=== PATIENT | male | born 1995 | race Caucasian/White ===

== ENCOUNTER → 2017-07-19 | Outpatient (CLI) | payer OTHER ==
--- NOTE | 2017-07-19 12:28 | XR ---
EXAMINATION TYPE: XR lumbar spine 2 or 3V DATE OF EXAM: 07/19/2017 CLINICAL HISTORY: pain TECHNIQUE: Three views of the lumbar spine are submitted. COMPARISON: None. FINDINGS: There are 5 lumbar type vertebral bodies identified. The lumbar spine shows satisfactory alignment w ithout evidence of acute fracture or dislocation. Vertebral body heights are within normal limits. Disc spaces are within normal limits. The overlying soft tissue appears unremarkable. IMPRESSION: No acute fracture or dislocation is seen in the lumbar spine. ICD 10 NO FRACTURE, INITIAL EVALUATION
== END | disposition home or self-care (01) ==
LOC: RADXRMAIN 10:44
PROVIDERS: ATTEND Family Medicine
DX: M54.32 Sciatica, left side (principal)
CPT/HCPCS: 72100

== ENCOUNTER 2017-07-23 21:24 | Emergency (ER) | payer MEDICAID, OTHER ==
[2017-07-23 21:31] VITALS: RESP 20
[2017-07-23] MEDS ORDERED: GLUCAGON 1 MG/ML VIAL IVP STA (21:47)
--- NOTE | 2017-07-23 21:57 | ED ---
General Adult HPI - General Chief complaint: ENT Stated complaint: food in throat Time Seen by Provider: 07/23/17 21:45 Source: patient, RN notes reviewed Mode of arrival: ambulatory Limitations: no limitations - History of Present Illness Initial comments: This is a 22-year-old male who states he some pork chop about 6 PM piece of again stuck in his esophagus. He states she's had this before about 2 years ago. He denies any chest pain shortness of breath fevers chills or sweats. - Related Data Home Medications Medication Instructions Recorded Confirmed Cataplex B 1 tab PO DAILY 07/23/17 07/23/17 Fish Oil/Dha/Epa [Fish Oil 1,200 1 cap PO DAILY 07/23/17 07/23/17 mg Fish Oil] Inflavonoid 1 tab PO DAILY 07/23/17 07/23/17 Naproxen [Naprosyn] 500 mg PO Q12HR PRN 07/23/17 07/23/17 methylPREDNISolone [Medrol Dose See Taper PO DIRECTED 07/23/17 07/23/17 Pack] Allergies Allergy/AdvReac Type Severity Reaction Status Date / Time No Known Allergies Allergy Verified 07/23/17 23:03 Review of Systems ROS Statement: Those systems with pertinent positive or pertinent negative responses have been documented in the HPI. ROS Other: All systems not noted in ROS Statement are negative. Past Medical History Past Medical History: No Reported History History of Any Multi-Drug Resistant Organisms: None Reported Past Surgical History: No Surgical Hx Reported Past Psychological History: No Psychological Hx Reported Smoking Status: Never smoker Past Alcohol Use History: None Reported Past Drug Use History: None Reported General Exam - General Exam Comments Initial Comments: This is a well-developed well-nourished awake alert oriented 3 male Limitations: no limitations General appearance: alert, in no apparent distress Head exam: Present: atraumatic, normocephalic, normal inspection Eye exam: Present: normal appearance, PERRL, EOMI. Absent: scleral icterus, conjunctival injection, periorbital swelling ENT exam: Present: normal exam, mucous membranes moist Neck exam: Present: normal inspection. Absent: tenderness, meningismus, lymphadenopathy Respiratory exam: Present: normal lung sounds bilaterally. Absent: respiratory distress, wheezes, rales, rhonchi, stridor Cardiovascular Exam: Present: regular rate, normal rhythm, normal heart sounds. Absent: systolic murmur, diastolic murmur, rubs, gallop, clicks GI/Abdominal exam: Present: soft, normal bowel sounds. Absent: distended, tenderness, guarding, rebound, rigid Extremities exam: Present: normal inspection, full ROM, normal capillary refill. Absent: tenderness, pedal edema, joint swelling, calf tenderness Back exam: Present: normal inspection Neurological exam: Present: alert, oriented X3, CN II-XII intact Psychiatric exam: Present: normal affect, normal mood Skin exam: Present: warm, dry, intact, normal color. Absent: rash Course Vital Signs 07/23/17 21:27 Temperature 100.0 F H Pulse Rate 82 Respiratory 20 Rate Blood Pressure 133/76 O2 Sat by Pulse 100 Oximetry Medical Decision Making - Medical Decision Making Patient was evaluated by Dr. Tidwell and endoscopy was performed. The food bolus was removed. Patient tolerated this well and feels much improved at this time. Patient will be discharged with follow-up in the office he was started on Prilosec. He is also to keep his follow-up with Dr. Coker as planned Disposition Clinical Impression: Esophageal foreign body Disposition: HOME SELF-CARE Condition: Good Instructions: Esophageal Foreign Body (ED) Referrals: Enrique Coker MD [Primary Care Provider] - 1-2 days
[2017-07-23] MEDS ORDERED: PROPOFOL 10 MG/ML 20 ML VIAL IV ONE (22:50)
[2017-07-23] MEDS ORDERED: SODIUM CHLORIDE 0.9% 1,000 ML IV ONE (22:56)
[2017-07-23 23:39] VITALS: BP 106/62; PULSE 65; TEMP 99.5
--- NOTE | 2017-07-24 06:21 | PCN ---
PROCEDURE NOTE DATE OF SERVICE: 07/23/2017. PROCEDURE: Esophagogastroduodenoscopy and removal of esophageal foreign body and biopsies from the antrum and esophagus. PREPARATION AND SEDATION: Preparation and sedation was provided by anesthesia. PREOPERATIVE DIAGNOSIS: Obstructive dysphagia. POSTOPERATIVE DIAGNOSIS: 1. Impacted piece of meat removed with a snare. 2. Corrugated esophagus consistent with eosinophilic esophagitis, biopsies obtained. 3. Gastritis and duodenitis. Biopsies obtained from the antrum to rule out H. Pylori infection. BRIEF CLINICAL HISTORY: The patient is a 22-year-old male who presented to the emergency room with the complaint of inability to swallow that happened after he was eating pork. The patient was not able to swallow his saliva or any food or liquid. He had similar episodes in the past. The last in 2015 and he required an upper endoscopy on a prior episode before that. The patient has difficulties when he eats meats and pork, but otherwise describes no specific swallowing issues and is not on any acid suppressive medications. He apparently had endoscopy in the past and was evaluated and told he had PEANUT allergy, which he has not been avoiding. This evaluation is to assess for impacted piece of meat. PROCEDURE: With the patient on his left lateral decubitus position and after informed consent and adequate sedation, I passed the Olympus GIF-160 video upper endoscope through the cricopharyngeus down the esophagus. The esophagus had a lot of secretions and debris which I suctioned and the impacted piece of meat was noted in the distal esophagus. I was able to capture that with a snare and removed it intact by withdrawing the endoscope with the snare. I then advanced the endoscope back into the stomach down the esophagus and passed it through the pylorus into the duodenum. The esophagus was corrugated consistent with eosinophilic esophagitis. GE junction was around 40 cm from the incisors and there was a small sliding hiatal hernia, but it was difficult to assess for esophagitis because of the exudation and friability in that area secondary to the impacted piece of meat. There was mottling and erythema in the stomach and I noted some erosions in the duodenal bulb on a background of erythema and edema. I will obtain biopsies from the antrum and the esophagus. Then the endoscope was withdrawn. The patient tolerated the procedure well. PLAN: Will await biopsy results. In the meantime, I advised that he stays on a liquid diet tonight and I suggested that he can use Pepcid or Prilosec over the counter until I see him in followup in the office and make additional recommendations regarding long-term management of his issues. I will keep you updated on his progress. MMHOLGERL / IJN: [id number] /
== END 2017-07-23 23:49 | disposition home or self-care (01) ==
LOC: EC 21:24
DX: T18.128A Food in esophagus causing other injury, initial encounter (principal); Z79.899 Other long term (current) drug therapy; Z79.52 Long term (current) use of systemic steroids
CPT/HCPCS: 99282; 43215; 96374; 96361; 43239; 43247; J1610; J2704; 88305

== ENCOUNTER → 2017-08-14 | Outpatient (CLI) | payer MEDICAID ==
--- NOTE | 2017-08-14 12:03 | MR ---
EXAMINATION TYPE: MR lumbar spine wo/w con DATE OF EXAM: 08/14/2017 11:08 AM COMPARISON: NONE HISTORY: sciatica, back and leg pain CONTRAST: The patient was injected with 8.5 mL intravenous Gadavist gadolinium contrast. Multiplanar, MultiSpin echo imaging of the lumbar spine was performed. L1-L2: Normal disc appearance without desiccation. No herniation, protrusion or disc bulging. No ca nal stenosis is present. Foramina are patent bilaterally. L2-L3: Normal disc appearance without desiccation. No herniation, protrusion or disc bulging. No ca nal stenosis is present. Foramina are patent bilaterally. L3-L4: Normal disc appearance without desiccation. No herniation, protrusion or disc bulging. No ca nal stenosis is present. Foramina are patent bilaterally. L4-L5: Mild disc desiccation. Subligamentous left-sided paracentral disc herniation results in left l ateral recess stenosis and foraminal encroachment. No evidence for central stenosis at this time. L5-S1: Normal disc appearance without desiccation. No herniation, protrusion or disc bulging. No ca nal stenosis is present. Foramina are patent bilaterally. Lumbar segments are intact. No paraspinal masses are identified. Conus medullaris has a normal appe arance. No pathologic enhancement. IMPRESSION: 1. Left-sided paracentral disc herniation at L4-5 resulting in left lateral recess stenosis and sergey inal encroachment. No evidence for extrusion or sequestered fragment.
== END | disposition home or self-care (01) ==
LOC: RADMRIMAIN 10:05
PROVIDERS: ATTEND Family Medicine
DX: M48.061 Spinal stenosis, lumbar region without neurogenic claudication (principal); M51.16 Intervertebral disc disorders with radiculopathy, lumbar region
CPT/HCPCS: 72158; A9581

== ENCOUNTER → 2020-12-02 | Outpatient (CLI) | payer BC, MEDICAID ==
--- NOTE | 2020-12-02 11:57 | MR ---
EXAMINATION TYPE: MR lumbar spine wo con DATE OF EXAM: 12/02/2020 COMPARISON: NONE HISTORY: Pain into lt buttocks, stenosis TECHNIQUE: T1 and T2 axial and sagittal images of the lumbar spine are submitted. FINDINGS: There is no abnormal signal seen within the visualized spinal cord or paraspinal soft tissu es. Small Schmorl's nodes are seen at multiple levels. Aorta of normal caliber. At L1-2 there is no evidence of degenerative disc disease, disc herniation, canal stenosis, or forami nal encroachment. At L2-3 there is no evidence of degenerative disc disease, disc herniation, canal stenosis, or forami nal encroachment At L3-4 there is no evidence of degenerative disc disease, disc herniation, canal stenosis, or forami nal encroachment. Mild broad-based central disc bulging. At L4-5 there is there is disc desiccation. There is a large central and left paracentral disc broad- based herniation with severe anterolateral compression of the thecal sac. Compression of the exiting left nerve root is suspected. There is foraminal encroachment bilaterally. At L5-S1 there is no evidence of degenerative disc disease, disc herniation, canal stenosis, or sergey inal encroachment Mild broad-based central disc bulging. IMPRESSION: 1. Large central left paracentral disc herniation with severe compression of the thecal sac and suspe cted left-sided nerve root compression L4-L5 correlate clinically. 2. Broad-based mild disc bulging L3-4 and L5-S1.
== END | disposition home or self-care (01) ==
LOC: RADMRIMAIN 08:55
PROVIDERS: ATTEND Nurse Practitioner
DX: M51.17 Intervertebral disc disorders with radiculopathy, lumbosacral region (principal)
CPT/HCPCS: 72148

== ENCOUNTER 2021-03-21 12:34 | Day surgery (SDC) | payer BC, MEDICAID ==
[~2021-03-21 12:34] MED LIST: LACTATED RINGERS 1,000 ML IV SCH
[2021-03-21 12:55] VITALS: TEMP 98.5
[2021-03-21] MEDS ORDERED: MIDAZOLAM 2 MG/2 ML VIAL ONE (13:03)
[2021-03-21] MEDS ORDERED: IOPAMIDOL M200 10 ML VIAL ONE (13:03)
[2021-03-21] MEDS ORDERED: methylPREDNISolone ACETATE 40 MG/ML 1 ML VIAL ONE (13:03)
[2021-03-21] MEDS ORDERED: fentaNYL (PF) 50 MCG/ML 2 ML AMP ONE (13:03)
--- NOTE | 2021-03-21 13:19 | P.PCN ---
Date of Procedure: 03/21/21 Procedure(s) Performed: PREOPERATIVE DIAGNOSIS: 1-Lumbar radiculopathy . 2-lumbar herniated disc disease POSTOPERATIVE DIAGNOSIS: Same as preoperative diagnoses. PROCEDURE 1. Transforaminal epidural steroid injection under fluoroscopic guidance at left L4-5 level. (Fluoroscopy images stored on file in the radiology Department ) 2. Lumbar epidurogram . ANESTHESIA: Local with 1% lidocaine 3 ml , moderate sedation with intravenous Versed 2 mg and fentanyle 50 micrograms. EBL: Minimal PROCEDURE INDICATION: The patient with low back pain and radiculopathy symptoms unresponsive to conservative treatment. PROCEDURE DESCRIPTION / TECHNIQUE: The patient was seen and identified in the preoperative area. Risks, benefits, complications, and alternatives were discussed with the patient. The patient agreed to proceed with the procedure and signed the consent. IV was started, and vital signs were stable. Patient was taken to the OR and time out was completed. The patient was placed in the prone position on procedure table and a pillow was placed under the abdomen to reduce lumbar lordosis. The lumbosacral area was prepped and draped in the usual sterile fashion. Critical pause was taken. Vital signs were closely monitored during the procedure. Conscious sedation was used during the procedure to decrease patient s anxiety. Using oblique fluoroscopy, the chin of the ``Jeevan dog at left L4-5 level was identified, and the skin and deeper tissues just below was localized with 1% lidocaine. Subsequently, a 22-gauge 3.5-inch spinal needle was advanced under a tunneled view fluoroscopic guidance just underneath the chin of the ``Jeevan dog at the left L4-5 Under lateral fluoroscopy, the needle was then advanced to the posterior border of the interforaminal space. After negative aspiration of CSF and blood and with no paresthesias, 1 mL Isovue 200 contrast dye was injected excellent epidurogram and outlining of the nerve root Subsequently, 3 mL of block solution containing 80 mg Depo-Medrol and 2 mL of 0.9% normal saline PF was injected. Needle was removed intact . At the end of the procedure, skin was cleansed, and bandages were applied. COMPLICATIONS:none DISPOSITION / PLANS: The patient was placed in a supine position and transferred to the recovery area in a stable condition for observation. There was no evidence of lower extremity motor or sensory deficit after the procedure. Patient was discharged from the recovery room after meeting discharge criteria. Home discharge instructions were given to the patient by the staff. The patient was reexamined prior to discharge.
[2021-03-21] MEDS ORDERED: IV FLUID CONTINUATION 1,000 ML IV ONE (13:20)
[2021-03-21 13:27] VITALS: RESP 16
--- NOTE | 2021-03-21 13:42 | FL ---
EXAMINATION TYPE: FL guided pain mgmt statistic DATE OF EXAM: 03/21/2021 CLINICAL HISTORY: Low back pain. TECHNIQUE: Fluoroscopy. COMPARISON: None. FINDINGS: Fluoroscopic guidance was provided during pain relief procedure performed by Dr. Baez . A total of 9 seconds of fluoroscopic time was utilized during the procedure and 1 spot image is ac quired. Single image acquired shows needle localization at L4 level with contrast injection. IMPRESSION: As Above.
[2021-03-21 13:52] VITALS: BP 115/69; PULSE 69
== END 2021-03-21 14:08 | disposition home or self-care (01) ==
LOC: ORPAIN 12:34
PROVIDERS: ATTEND Specialist
DX: M51.16 Intervertebral disc disorders with radiculopathy, lumbar region (principal)
CPT/HCPCS: 64483; J2250; J1030; J3010; Q9966; 99152

== ENCOUNTER → 2021-04-17 | Outpatient (CLI) | payer BC ==
[2021-04-17 14:51] VITALS: BP 145/82; PULSE 82; RESP 18; TEMP 97.9
--- NOTE | 2021-04-17 15:03 | P.PAINPG ---
Subjective Progress Note Date: 04/17/21 Principal diagnosis: Lumbar back pain, and left leg pain Mr. Coker is a 25 -year-old pleasant male came to the [facility] pain clinic for postprocedure evaluation . Patient has ongoing pain for many years secondary to trampoline injury. Patient had a left transforaminal L4-L5 epidural steroid injection on 03/21/2021. Which helped more than 80% pain relief, still helping to some extent in relieving his pain. Most of his pain during his activities, and during the nighttime after prolonged working hours. He is actively working and doing climbing, and lifting things.. Patient describes pain is aching, throbbing, constant type of pain. Pain is radiating to left lower extremity up to the calf area. Patient rated pain levels are 6 out of 10 in severity. With the help of procedure pain levels are 0 out of 10 in severity. Activities making pain worse. Medications, resting, interventional procedure helping in relieving patient's pain. Patient pain some days better than others. Overall activities decreased secondary to pain. Because of the pain sometimes patient is feeling lack of sleep, interest, and energy. Denied any side effects with the medications. Denied any bowel or bladder problems at this time. Not using any walking aids. Patient denies any suicidal or homicidal ideations intent or plan. Patient denies any auditory or visual hallucinations. Patient denied any red flag symptoms related to pain. Objective - Vital Signs Vital signs: Vital Signs Temp 97.9 F 04/17/21 14:44 Pulse 82 04/17/21 14:44 Resp 18 04/17/21 14:44 BP 145/82 04/17/21 14:44 Pulse Ox 100 04/17/21 14:44 - Exam General: Well-developed, well-nourished, no acute distress HEENT: Normocephalic, and atraumatic Neck: Supple, no neck swelling Psychiatric: Appropriate mood, and affect MACHINE RIVETER: No focal neurological deficits Musculoskeletal: Upper extremity: Normal strength, and range of motion. Sensation grossly intact Lower extremity: Normal strength, and decreased range of motion secondary to pain Lumbar spine: Paravertebral tenderness: positive Lumbar facet load test : Negative Sacroiliac joint tenderness: Negative SLR test: Negative - Constitutional Constitutional Comment(s): 13 point review of symptoms negative except as mentioned in history of present illness Assessment and Plan Assessment: L4-L5 herniated nucleus pulposus Chronic intermittent low back pain, radiating to left lower extremity Plan: #1 Diagnoses, prognosis, and multiple treatment options including but not limited to physical therapy, interventional therapy, adjunct medication therapy, narcotic medication, and surgical options were discussed with the patient. And all questions were answered to the patient's satisfaction. #2 treatment plan agreement : Patient was thoroughly discussed regarding the treatment options, alternatives, and importance of exercises as tolerated. Patient clearly understood. #3 Patient was counseled on importance of regular exercise. Including jay jay chi, aerobic exercises as tolerated. Which helps for chronic pain, and overall well- being. #4 investigations: MAPS- reviewed , urine drug test- not done #5 diagnostic tests: None #6 consultation : None # 7 interventional procedures: Left side L4-L5 transforaminal epidural steroid injection . Procedure, complications, alternatives discussed with the patient. #8 medications None from the pain clinic # 9 TENS unit's, and percussion massage device #10 disposition: scheduled to follow up with pain clinic in [ ] weeks duration. Time with Patient: Less than 30 PQRS Measure Charge Sheet Measure #130: Documentation of Current Meds in Medical Chart: Patient's medications documented in chart Measure #226: Tobacco Use: Screen & Cessation Intervention: Pt not a tobacco user Measure #111: Pneumonia Vaccination: Pneumococcal vaccine NOT administered or previously given Measure #47: Advance Care Plan: Advance care planning discussed & documented, pt chose/unable to give Measure #412: Opioid Treatment Agreement: No documentation of signed opioid treatment agreement Measure #408: Opioid Therapy Follow-up Evaluation: Patient had NO f/u eval minimum every 3 months during opioid therapy Measure #317: Preventitive Care & Scrn High Bld Press & F/U: Normal blood pre ssure, f/u not required Measure #128: Body Mass Index (BMI) Screening & Follow-up: BMI documented within normal parameters Measure #131: Pain Assessment & Follow-up: Pain positive & plan documented Measure #431: Unhealthy Alcohol Use Preventative Care & Scrn: Patient not identified as an unhealthy alcohol user Mode of Arrival: Ambulatory - Pain Location Lower Back Non-Pharmacological Interventions: Exercise, Home Exercise, Ice, Inactivity, Physical Therapy, Position/Reposition, Stretching Pharmacological Interventions: Epidural, Medication, PRN Medication PQRS Narrative: Smoking Status Never smoker Blood Pressure 145/82 Pain Intensity [Lower Back] 0 Scale Used Numeric (1 - 10) Hx Alcohol Use (MH) No Home Medications: Ambulatory Orders Naproxen [Naprosyn] 500 mg PO Q12HR PRN 07/23/17 Controlled Substance Measures - Controlled Substance Measures Is patient prescribed a controlled substance at discharge?: No
== END ==
LOC: PNWHC3 14:28
DX: M51.26 Other intervertebral disc displacement, lumbar region (principal); G89.29 Other chronic pain
CPT/HCPCS: 99211

== ENCOUNTER 2021-05-25 11:47 | Day surgery (SDC) | payer BC ==
[2021-05-24 09:05] VITALS: BMI 27.9
[2021-05-25 12:03] VITALS: RESP 20; TEMP 98.5
[2021-05-25] MEDS ORDERED: IOPAMIDOL M200 10 ML VIAL ONE (12:47)
[2021-05-25] MEDS ORDERED: methylPREDNISolone ACETATE 40 MG/ML 1 ML VIAL ONE (12:47)
--- NOTE | 2021-05-25 13:06 | P.PCN ---
Date of Procedure: 05/25/21 Procedure(s) Performed: PREOPERATIVE DIAGNOSIS: 1-Lumbar radiculopathy . 2-lumbar herniated disc disease POSTOPERATIVE DIAGNOSIS: Same as preoperative diagnoses. PROCEDURE 1. Transforaminal epidural steroid injection under fluoroscopic guidance at left L4-5 level. (Fluoroscopy images stored on file in the radiology Department ) 2. Lumbar epidurogram . ANESTHESIA: Local with 1% lidocaine 3 ml only EBL: Minimal PROCEDURE INDICATION: The patient with low back pain and radiculopathy symptoms unresponsive to conservative treatment. PROCEDURE DESCRIPTION / TECHNIQUE: The patient was seen and identified in the preoperative area. Risks, benefits, complications, and alternatives were discussed with the patient. The patient agreed to proceed with the procedure and signed the consent. IV was started, and vital signs were stable. Patient was taken to the OR and time out was completed. The patient was placed in the prone position on procedure table and a pillow was placed under the abdomen to reduce lumbar lordosis. The lumbosacral area was prepped and draped in the usual sterile fashion. Critical pause was taken. Vital signs were closely monitored during the procedure. Using oblique fluoroscopy, the chin of the `Beckyy dog at left L4-5 level was identified, and the skin and deeper tissues just below was localized with 1% lidocaine. Subsequently, a 22-gauge 3.5-inch spinal needle was advanced under a tunneled view fluoroscopic guidance just underneath the chin of the `Beckyy dog at the left L4-5 Under lateral fluoroscopy, the needle was then advanced to the posterior border of the interforaminal space. After negative aspiration of CSF and blood and with no paresthesias, 1 mL Isovue 200 contrast dye was injected excellent epidurogram and outlining of the nerve root Subsequently, 3 mL of block solution containing 80 mg Depo-Medrol and 2 mL of 0.9% normal saline PF was injected. Needle was removed intact . At the end of the procedure, skin was cleansed, and bandages were applied. COMPLICATIONS:none DISPOSITION / PLANS: The patient was placed in a supine position and transferred to the recovery area in a stable condition for observation. There was no evidence of lower extremity motor or sensory deficit after the procedure. Patient was discharged from the recovery room after meeting discharge criteria. Home discharge instructions were given to the patient by the staff. The patient was reexamined prior to discharge.
[2021-05-25] MEDS ORDERED: IV FLUID CONTINUATION 1,000 ML IV ONE (13:07)
--- NOTE | 2021-05-25 13:11 | FL ---
EXAMINATION TYPE: FL guided pain mgmt statistic DATE OF EXAM: 05/25/2021 CLINICAL HISTORY: Low back pain. TECHNIQUE: Fluoroscopy. COMPARISON: None. FINDINGS: Fluoroscopic guidance was provided during pain relief procedure performed by Dr. Baez . A total of 3 seconds of fluoroscopic time was utilized during the procedure and 1 spot images are acquired. Single image acquired shows needle localization off the midline at L4 level with contrast injection. IMPRESSION: As Above.
[2021-05-25 13:36] VITALS: BP 111/61; PULSE 88
== END 2021-05-25 13:40 | disposition home or self-care (01) ==
LOC: ORPAIN 11:47
PROVIDERS: ATTEND Specialist
DX: M54.16 Radiculopathy, lumbar region (principal); M54.51 Vertebrogenic low back pain
CPT/HCPCS: 64483; J1030; Q9966

== ENCOUNTER → 2021-06-14 | Outpatient (CLI) | payer BC ==
[2021-06-14 09:37] VITALS: BP 131/69; PULSE 67; RESP 18; TEMP 97.8
--- NOTE | 2021-06-14 09:50 | P.PN ---
Subjective Progress Note Date: 06/14/21 Principal diagnosis: A 26 yr old male with a history of severe and chronic low back pain secondary to lumbar degenerative disc diseases and lumbar spondylosis with facet arthropathy presents today for follow-up of the left TFESI #4. Pain level is currently at 0 out of 10 in intensity. With activities such as bending, lifting throughout the day, the pain escalates to 4 out of 10 in intensity by evening. Pain is dull/ achy in the lower lumbar spine with radiation to the Botox. Pain is alleviated with medications, injections, home exercise regimen, massage and rest. Interventional pain procedures completed bilateral TFESI the L4-L5 joint injections Patient is currently on naproxen and Aleve OTC Patient denies any side effects of the medication(s), denies excessive drowsiness or sleepiness, denies suicidal ideation and reports that the current pain medication is helping to control the pain and improve activities of daily living. Patient denies any motor or sensory deficits. Patient denies any fever or night sweats, denies any change in the bowel movements or urination. Physical Examination: -Constitutional: Cooperative. Not in acute distress . -HEENT: Neck is supple. No lymphadenopathy. No thyromegaly. Normal thyroid size. Eyes: No ptosis , no icterus, no photophobia. ENT: No auditory deficits. Normal oropharynx. No Thrush. - Respiratory: Chest clear to auscultations bilaterally. No wheezing. No rhonchi. - Cardiovascular: Regular rate and rhythm. S1 / S2 , no S3 , no S4. - Gastrointestinal: Abdomen soft no tenderness. Bowel sounds positive in all four quadrants. No organomegaly. - Genitourinary: Deferred. - Neurologic: Cranial nerve II to XII intact. No focal neurological deficits. - Psychatric: Alert & oriented x 3. Matching mood & appropriate affect. Judgment and insight intact. - Lymphatic: No Lymphadenopathy. - Musculoskeletal: Cervical spine: Muscle bulk/ tone/ strength in the bilateral upper extremities normal. Facet loading test cervical area positive. Lumbar spine: Motor bulk/ tone/ strength lower extremities , thigh and legs : 5/5 Deep tendon reflexes : Normal Knee Jerk. Normal Ankle Jerk . Mild vertebral body tenderness over the L4-L5 and S1 with deep palpation Lumbar Facet Loading Test positive Straight Leg Raise: positive at 30 degree right side/ left side Richard test: positive right side / left side Range of motion: Range of motion in flexion of the lumbar spine <60 degrees Range of motion: Extension of the lumbar spine <20 degrees Severe tenderness over the Sacroiliac joint: right side / left side Assessment and plan: Chronic low back pain secondary to lumbar degenerative disc disease , lumbar spondylosis with facet arthropathy without myelopathy Discussed pain relief modalities to enact when the pain is mild (1-3 out of 10 in intensity) Discussed that patient may return to the office if pain relief modalities are ineffective or if pain elevates to a moderate (4-7 out of 10 in intensity) All patient questions answered MAPS reviewed and it was appropriate. I have spent 31 minutes on patient care today. Dr Baez was available by phone for the evaluation of this patient. The time was used to review the medical records including relevant urine studies and Prescription history (MAPs), review of the available imaging, evaluation and examination of the patient, coordination of care with the medical staff and if applicable referring physicians, as well as creation of the medical record Objective - Vital Signs Vital signs: Vital Signs Temp 97.8 F 06/14/21 09:32 Pulse 67 06/14/21 09:32 Resp 18 06/14/21 09:32 BP 131/69 06/14/21 09:32 Pulse Ox 97 06/14/21 09:32 Intake & Output 06/13/21 06/14/21 06/14/21 18:59 06:59 18:59 Weight 88.451 kg PQRS Measure Charge Sheet Mode of Arrival: Ambulatory PQRS Narrative: Smoking Status Never smoker Blood Pressure 131/69 Scale Used Numeric (1 - 10) Hx Alcohol Use (MH) No Home Medications: Ambulatory Orders Naproxen [Naprosyn] 500 mg PO Q12HR PRN 07/23/17
== END ==
LOC: PNWHC3 09:18
PROVIDERS: ATTEND Physician Assistant Medical
DX: M51.36 Other intervertebral disc degeneration, lumbar region (principal); M47.816 Spondylosis without myelopathy or radiculopathy, lumbar region; G89.29 Other chronic pain
CPT/HCPCS: 99211